=== PATIENT | male | born 1990 | race Caucasian/White ===

== ENCOUNTER 2017-08-14 17:21 | Observation (INO) | payer MEDICAID, OTHER ==
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
[2017-08-14 17:44] LABS: CHLORIDE,CL 102 mmol/L (98-107); SODIUM,NA 139 mmol/L (136-145)
[2017-08-14] MEDS ORDERED: Potassium Chloride 10 MEQ in Premix Bag 1 BAG IV ONE (18:13)
[2017-08-14] MEDS ORDERED: Sodium Chloride 0.9% 500 ML IV SCH (18:15)
[2017-08-14] MEDS ORDERED: Iopamidol 612 MG/ML 100 ML Bottle IVPUSH ONE (18:34)
[2017-08-14] MEDS ORDERED: Ondansetron 4 MG/2 ML SDV IVPUSH ONE (19:07)
[2017-08-14] MEDS ORDERED: HYDROmorphone 1 MG/ML Syringe IVPUSH ONE (19:07)
[2017-08-14] MEDS ORDERED: Potassium Chloride 20 MEQ Tab.ER PO ONE (21:22)
[2017-08-14] MEDS ORDERED: LORazepam 2 MG/ML MDV IVPUSH PRN (21:24)
[2017-08-14] MEDS ORDERED: Ondansetron 4 MG/2 ML SDV IVPUSH PRN (21:24)
[2017-08-14] MEDS: Morphine 4 MG/ML Syringe IVPUSH PRN (21:34)
[2017-08-14] MEDS ORDERED: Sodium Chloride 0.9% 1,000 ML IV SCH (22:00)
[2017-08-14] MEDS ORDERED: Bacitracin/Neomycin/Polymyxin B Oint 0.9 GM U/D Packet TOP ONE (22:03)
[2017-08-14] MEDS: Nicotine 21 MG/24 Hr Patch TRDERM SCH (22:25)
[2017-08-15] MEDS: Potassium Chloride 10 MEQ Tab.ER PO ONE ×2 (00:46→01:51)
[2017-08-15] MEDS: Morphine 4 MG/ML Syringe IVPUSH PRN ×5 (00:46→11:02)
[2017-08-15] MEDS: Acetaminophen 325 MG Tab PO PRN ×2 (05:41→08:29)
[2017-08-15] MEDS ORDERED: Potassium Chloride 10 MEQ Tab.ER PO ONE (06:00)
[2017-08-15 07:56] LABS: CHLORIDE,CL 102 mmol/L (98-107); SODIUM,NA 136 mmol/L (136-145)
[2017-08-15] MEDS: Nicotine 21 MG/24 Hr Patch TRDERM SCH (08:28)
[2017-08-15] MEDS ORDERED: Lactated Ringers 1,000 ML IV ONE (09:25)
[2017-08-15] MEDS ORDERED: Sodium Chloride 0.9% 1,000 ML IV SCH (10:30)
[2017-08-15] MEDS ORDERED: traMADol 50 MG Tab PO SCH (11:00)
[2017-08-15] MEDS ORDERED: Acetaminophen 325 MG Tab PO PRN (11:00)
[2017-08-15] MEDS ORDERED: HYDROmorphone 1 MG/ML Syringe IVPUSH PRN (11:00)
--- NOTE | 2017-08-15 11:15 | PCM.PN ---
- General Info Date of Service: 08/15/17 Admission Dx/Problem (Free Text): Trauma Functional Status: Reports: Pain Controlled, Tolerating Diet, Ambulating, Urinating, Incentive Spirometry (Initiated today). Denies: New Symptoms Pain Score: 5 - Review of Systems General: Reports: No Symptoms. Denies: Fever, Weakness, Fatigue, Malaise, Chills, Night Sweats, Appetite (Appetite good) HEENT: Reports: No Symptoms. Denies: Dysphasia, Ear Pain, Eye Pain, Headaches, Post Nasal Drip, Sinus Congestion, Sore Throat, Rhinitis, Visual Changes Pulmonary: Reports: Pleuritic Chest Pain (Left lower chest wall pain). Denies: Shortness of Breath, Cough, Sputum, Hemoptysis, Wheezing Cardiovascular: Reports: Chest Pain (Chest wall/rib pain as above). Denies: Palpitations, Dyspnea on Exertion, Orthopnea, PND, Edema, Lightheadedness Gastrointestinal: Reports: No Symptoms, Other (Normal bowel movement earlier today). Denies: Abdominal Pain, Constipation, Decreased Appetite, Diarrhea, Difficulty Swallowing, Flatus, Hematochezia, Melena, Nausea, Vomiting Genitourinary: Reports: No Symptoms. Denies: Dysuria, Frequency, Burning, Urgency, Incontinence, Hematuria, Flank Pain Musculoskeletal: Reports: Arm Pain, Back Pain, Leg Pain, Other (Above pain secondary to multiple contusions and abrasions). Denies: Neck Pain, Shoulder Pain, Hand Pain, Joint Pain, Joint Swelling Skin: Reports: Bruising, Other (Abrasions as below). Denies: Diaphoresis Neurological: Reports: No Symptoms, Difficulty Walking (Mild secondary to bruises). Denies: Confusion, Dizziness, Headache, Numbness, Paresthesia, Syncope, Tingling, Weakness, Gait Disturbance Psychiatric: Reports: Mood Lability (Somewhat uncooperative as below), Cravings (Tobacco and previous illicit drug use). Denies: Confusion, Depression, Anxiety , Agitation, Hallucinations, Suicidal Ideation, Homicidal Ideation - Patient Data Vitals - Most Recent: Last Vital Signs Temp 35.9 C 08/15/17 08:00 Pulse 109 H 08/15/17 08:00 Resp 16 08/15/17 04:00 BP 133/72 08/15/17 08:00 Pulse Ox 97 08/15/17 08:00 Vital Signs (72 hours) 08/14/17 08/14/17 08/15/17 21:53 21:56 00:00 Temperature [ 36.8 C 36.7 C Temporal] Pulse, 102 H 91 Peripheral [ Left Pulse Oximetry] Respiratory 16 18 Rate Blood Pressure 148/83 H 145/79 H [Right Upper Arm] O2 Sat by Pulse 100 100 100 Oximetry 08/15/17 08/15/17 04:00 08:00 Temperature [ 36.7 C 35.9 C Temporal] Pulse, 88 109 H Peripheral [ Left Pulse Oximetry] Respiratory 16 Rate Blood Pressure 137/64 133/72 [Right Upper Arm] O2 Sat by Pulse 100 97 Oximetry Weight - Most Recent: 88.451 kg I&O - Last 24 Hours: Intake & Output 08/14/17 08/15/17 08/15/17 22:59 06:59 14:59 Intake Total 4000 720 Output Total 1200 Balance 2800 720 Imaging Impressions - Last 24 Hours: Final reports of multiple x-rays taken in the emergency room including CT scan, etc. still pending shelter monitor shows normal sinus rhythm with average heart rate in the 80s, however occasional heart rate in the low 100s with agitation but no ectopy or other arrhythmia Lab Results Last 24 Hours: Laboratory Results - last 24 hr 08/15/17 08/15/17 08/15/17 Range/Units 07:17 07:17 07:17 WBC 11.3 H (4.0-10.2) K/uL RBC 4.41 (4.33-5.41) M/uL Hgb 14.1 (13.1-16.8) g/dL Hct 39.7 (39.0-49.0) % MCV 90.0 (84.0-98.0) fL MCH 32.0 (28.2-33.3) pg MCHC 35.5 (31.7-36.0) g/dL RDW 13.3 (11.2-14.1) % Plt Count 296 (150-350) K/uL Neut % (Auto) 62.2 (45.0-80.0) % Lymph % (Auto) 22.9 (10.0-50.0) % Wilcox % (Auto) 11.9 (2.0-14.0) % Eos % (Auto) 2.7 (0.0-5.0) % Baso % (Auto) 0.3 (0.0-2.0) % Neut # (Auto) 7.03 H (1.40-7.00) K/uL Lymph # (Auto) 2.59 (0.50-3.50) K/uL Wilcox # (Auto) 1.35 H (0.00-1.00) K/uL Eos # (Auto) 0.31 (0.00-0.50) K/uL Baso # (Auto) 0.03 (0.00-0.20) K/uL Sodium 136 (136-145) mmol/L Potassium 4.0 (3.5-5.1) mmol/L Chloride 102 (98-107) mmol/L Carbon Dioxide 24.6 (21.0-32.0) mmol/L BUN 12 (7-18) mg/dL Creatinine 0.79 (0.51-1.17) mg/dL Est Cr Clr Drug Dosing 187.08 mL/min Estimated GFR (MDRD) > 60 mL/min Glucose 96 (74-106) mg/dL Calcium 9.0 (8.5-10.1) mg/dL Total Bilirubin 1.1 H (0.2-1.0) mg/dL AST 61 H (15-37) U/L ALT 43 (12-78) U/L Alkaline Phosphatase 62 (46-116) IU/L Creatine Kinase 1597 H (26-308) U/L Total Protein 7.6 (6.4-8.2) g/dL Albumin 3.7 (3.4-5.0) g/dL Laboratory Tests 08/14/17 08/14/17 08/14/17 Range/Units 17:15 17:15 17:15 WBC 17.6 H (4.0-10.2) K/uL RBC 4.73 (4.33-5.41) M/uL Hgb 14.9 (13.1-16.8) g/dL Hct 41.8 (39.0-49.0) % MCV 88.4 (84.0-98.0) fL MCH 31.5 (28.2-33.3) pg MCHC 35.6 (31.7-36.0) g/dL RDW 13.2 (11.2-14.1) % Plt Count 314 (150-350) K/uL Neut % (Auto) 76.1 (45.0-80.0) % Lymph % (Auto) 13.5 (10.0-50.0) % Wilcox % (Auto) 9.5 (2.0-14.0) % Eos % (Auto) 0.7 (0.0-5.0) % Baso % (Auto) 0.2 (0.0-2.0) % Neut # (Auto) 13.43 H (1.40-7.00) K/uL Lymph # (Auto) 2.38 (0.50-3.50) K/uL Wilcox # (Auto) 1.67 H (0.00-1.00) K/uL Eos # (Auto) 0.12 (0.00-0.50) K/uL Baso # (Auto) 0.03 (0.00-0.20) K/uL Sodium 139 (136-145) mmol/L Potassium 3.1 L (3.5-5.1) mmol/L Chloride 102 (98-107) mmol/L Carbon Dioxide 24.4 (21.0-32.0) mmol/L BUN 12 (7-18) mg/dL Creatinine 0.80 (0.51-1.17) mg/dL Est Cr Clr Drug Dosing TNP Estimated GFR (MDRD) > 60 mL/min Glucose 93 (74-106) mg/dL Calcium 9.5 (8.5-10.1) mg/dL Total Bilirubin 0.7 (0.2-1.0) mg/dL AST 49 H (15-37) U/L ALT 43 (12-78) U/L Alkaline Phosphatase 66 (46-116) IU/L Creatine Kinase 1448 H (26-308) U/L Total Protein 8.2 (6.4-8.2) g/dL Albumin 4.3 (3.4-5.0) g/dL Specimen Type Urine Color Urine Appearance Urine pH (5.0-9.0) Ur Specific Dixon (1.005-1.030) Urine Protein (NEGATIVE) mg/dL Urine Glucose (UA) (NEGATIVE) mg/dL Urine Ketones (NEGATIVE) mg/dL Urine Occult Blood (NEGATIVE) Urine Nitrite (NEGATIVE) Urine Bilirubin (NEGATIVE) Urine Urobilinogen (0.2-1.0) E.U./dL Ur Leukocyte Esterase (NEGATIVE) Urine RBC /HPF Urine WBC /HPF Ur Epithelial Cells /LPF Urine Bacteria (NONE TO FEW) /HPF Urine Mucus (NEGATIVE) /LPF Urine Opiates Screen (NEGATIVE) Urine Methadone Screen (NEGATIVE) U Acetaminophen Screen (NEGATIVE) Ur Barbiturates Screen (NEGATIVE) Ur Tricyclics Screen (NEGATIVE) Ur Phencyclidine Scrn (NEGATIVE) Ur Amphetamine Screen (NEGATIVE) U Methamphetamines Scrn (NEGATIVE) U Benzodiazepines Scrn (NEGATIVE) U Cocaine Metab Screen (NEGATIVE) U Marijuana (THC) Screen (NEGATIVE) 08/14/17 08/14/17 08/15/17 Range/Units 18:40 18:40 07:17 WBC (4.0-10.2) K/uL RBC (4.33-5.41) M/uL Hgb (13.1-16.8) g/dL Hct (39.0-49.0) % MCV (84.0-98.0) fL MCH (28.2-33.3) pg MCHC (31.7-36.0) g/dL RDW (11.2-14.1) % Plt Count (150-350) K/uL Neut % (Auto) (45.0-80.0) % Lymph % (Auto) (10.0-50.0) % Wilcox % (Auto) (2.0-14.0) % Eos % (Auto) (0.0-5.0) % Baso % (Auto) (0.0-2.0) % Neut # (Auto) (1.40-7.00) K/uL Lymph # (Auto) (0.50-3.50) K/uL Wilcox # (Auto) (0.00-1.00) K/uL Eos # (Auto) (0.00-0.50) K/uL Baso # (Auto) (0.00-0.20) K/uL Sodium 136 (136-145) mmol/L Potassium 4.0 (3.5-5.1) mmol/L Chloride 102 (98-107) mmol/L Carbon Dioxide 24.6 (21.0-32.0) mmol/L BUN 12 (7-18) mg/dL Creatinine 0.79 (0.51-1.17) mg/dL Est Cr Clr Drug Dosing 187.08 Estimated GFR (MDRD) > 60 mL/min Glucose 96 (74-106) mg/dL Calcium 9.0 (8.5-10.1) mg/dL Total Bilirubin 1.1 H (0.2-1.0) mg/dL AST 61 H (15-37) U/L ALT 43 (12-78) U/L Alkaline Phosphatase 62 (46-116) IU/L Creatine Kinase (26-308) U/L Total Protein 7.6 (6.4-8.2) g/dL Albumin 3.7 (3.4-5.0) g/dL Specimen Type Urinblad Urine Color Dark yellow Urine Appearance Clear Urine pH 7.0 (5.0-9.0) Ur Specific Dixon 1.015 (1.005-1.030) Urine Protein 100 H (NEGATIVE) mg/dL Urine Glucose (UA) Negative (NEGATIVE) mg/dL Urine Ketones 40 H (NEGATIVE) mg/dL Urine Occult Blood Trace-intact H (NEGATIVE) Urine Nitrite Negative (NEGATIVE) Urine Bilirubin Negative (NEGATIVE) Urine Urobilinogen 1.0 (0.2-1.0) E.U./dL Ur Leukocyte Esterase Negative (NEGATIVE) Urine RBC 0-5 /HPF Urine WBC 10-20 H /HPF Ur Epithelial Cells Rare /LPF Urine Bacteria Rare (NONE TO FEW) /HPF Urine Mucus Few H (NEGATIVE) /LPF Urine Opiates Screen Negative (NEGATIVE) Urine Methadone Screen Negative (NEGATIVE) U Acetaminophen Screen Negative (NEGATIVE) Ur Barbiturates Screen Negative (NEGATIVE) Ur Tricyclics Screen Negative (NEGATIVE) Ur Phencyclidine Scrn Negative (NEGATIVE) Ur Amphetamine Screen Positive H (NEGATIVE) U Methamphetamines Scrn Positive H (NEGATIVE) U Benzodiazepines Scrn Positive H (NEGATIVE) U Cocaine Metab Screen Negative (NEGATIVE) U Marijuana (THC) Screen Positive H (NEGATIVE) 08/15/17 08/15/17 Range/Units 07:17 07:17 WBC 11.3 H (4.0-10.2) K/uL RBC 4.41 (4.33-5.41) M/uL Hgb 14.1 (13.1-16.8) g/dL Hct 39.7 (39.0-49.0) % MCV 90.0 (84.0-98.0) fL MCH 32.0 (28.2-33.3) pg MCHC 35.5 (31.7-36.0) g/dL RDW 13.3 (11.2-14.1) % Plt Count 296 (150-350) K/uL Neut % (Auto) 62.2 (45.0-80.0) % Lymph % (Auto) 22.9 (10.0-50.0) % Wilcox % (Auto) 11.9 (2.0-14.0) % Eos % (Auto) 2.7 (0.0-5.0) % Baso % (Auto) 0.3 (0.0-2.0) % Neut # (Auto) 7.03 H (1.40-7.00) K/uL Lymph # (Auto) 2.59 (0.50-3.50) K/uL Wilcox # (Auto) 1.35 H (0.00-1.00) K/uL Eos # (Auto) 0.31 (0.00-0.50) K/uL Baso # (Auto) 0.03 (0.00-0.20) K/uL Sodium (136-145) mmol/L Potassium (3.5-5.1) mmol/L Chloride (98-107) mmol/L Carbon Dioxide (21.0-32.0) mmol/L BUN (7-18) mg/dL Creatinine (0.51-1.17) mg/dL Est Cr Clr Drug Dosing Estimated GFR (MDRD) mL/min Glucose (74-106) mg/dL Calcium (8.5-10.1) mg/dL Total Bilirubin (0.2-1.0) mg/dL AST (15-37) U/L ALT (12-78) U/L Alkaline Phosphatase (46-116) IU/L Creatine Kinase 1597 H (26-308) U/L Total Protein (6.4-8.2) g/dL Albumin (3.4-5.0) g/dL Specimen Type Urine Color Urine Appearance Urine pH (5.0-9.0) Ur Specific Dixon (1.005-1.030) Urine Protein (NEGATIVE) mg/dL Urine Glucose (UA) (NEGATIVE) mg/dL Urine Ketones (NEGATIVE) mg/dL Urine Occult Blood (NEGATIVE) Urine Nitrite (NEGATIVE) Urine Bilirubin (NEGATIVE) Urine Urobilinogen (0.2-1.0) E.U./dL Ur Leukocyte Esterase (NEGATIVE) Urine RBC /HPF Urine WBC /HPF Ur Epithelial Cells /LPF Urine Bacteria (NONE TO FEW) /HPF Urine Mucus (NEGATIVE) /LPF Urine Opiates Screen (NEGATIVE) Urine Methadone Screen (NEGATIVE) U Acetaminophen Screen (NEGATIVE) Ur Barbiturates Screen (NEGATIVE) Ur Tricyclics Screen (NEGATIVE) Ur Phencyclidine Scrn (NEGATIVE) Ur Amphetamine Screen (NEGATIVE) U Methamphetamines Scrn (NEGATIVE) U Benzodiazepines Scrn (NEGATIVE) U Cocaine Metab Screen (NEGATIVE) U Marijuana (THC) Screen (NEGATIVE) Logan Results Last 24 Hours: None Med Orders - Current: Current Medications Acetaminophen (Tylenol) 650 mg PO Q4H PRN PRN Reason: Pain Hydromorphone HCl (Dilaudid) 1 mg IVPUSH Q4H PRN PRN Reason: Pain (severe 7-10) Sodium Chloride (Normal Saline) 1,000 mls @ 125 mls/hr IV ASDIRECTED JESSICA Lorazepam (Ativan) 1 mg PO QID JESSICA Ondansetron HCl (Zofran) 4 mg IVPUSH Q6H PRN PRN Reason: Nausea/Vomiting Last Admin: 08/14/17 21:34 Dose: 4 mg Tramadol HCl (Ultram) 50 mg PO Q6H JESSICA Discontinued Medications Acetaminophen (Tylenol) 650 mg PO Q6H PRN PRN Reason: Pain Last Admin: 08/15/17 08:29 Dose: 650 mg Hydromorphone HCl (Dilaudid) 1 mg IVPUSH ONETIME ONE Stop: 08/14/17 19:08 Last Admin: 08/14/17 19:13 Dose: 1 mg Potassium Chloride 10 meq/ (Premix) 50 mls @ 50 mls/hr IV ONETIME ONE Stop: 08/14/17 19:12 Last Admin: 08/14/17 19:12 Dose: 50 mls/hr Sodium Chloride (Normal Saline) 500 mls @ 500 mls/hr IV .BOLUS JESSICA Last Admin: 08/14/17 19:12 Dose: 500 mls/hr Sodium Chloride (Normal Saline) 1,000 mls @ 150 mls/hr IV ASDIRECTED JESSICA Last Admin: 08/15/17 06:17 Dose: 150 mls/hr Lactated Ringer's (Ringers, Lactated) 1,000 mls @ 999 mls/hr IV .BOLUS ONE Stop: 08/15/17 10:25 Last Admin: 08/15/17 10:00 Dose: 999 mls/hr Iopamidol (Isovue-300 (61%)) 100 ml IVPUSH ONETIME ONE Stop: 08/14/17 18:35 Last Admin: 08/14/17 18:53 Dose: 100 ml Lorazepam (Ativan) 1 mg IVPUSH Q8H PRN PRN Reason: Anxiety Last Admin: 08/15/17 03:52 Dose: 1 mg Morphine Sulfate (Morphine) 4 mg IVPUSH Q2H PRN PRN Reason: Pain Last Admin: 08/15/17 11:02 Dose: 4 mg Neomycin/Polymyxin/Bacitracin (Triple Antibiotic Oint) 1 each TOP ONETIME ONE Stop: 08/14/17 22:04 Last Admin: 08/15/17 00:21 Dose: 1 each Nicotine (Habitrol) 21 mg TRDERM DAILY [facility] Last Admin: 08/15/17 08:28 Dose: 21 mg Ondansetron HCl (Zofran) 4 mg IVPUSH ONETIME ONE Stop: 08/14/17 19:08 Last Admin: 08/14/17 19:13 Dose: 4 mg Potassium Chloride (Klor-Con M20) 40 meq PO ONETIME ONE Stop: 08/14/17 21:23 Last Admin: 08/14/17 21:34 Dose: 40 meq Potassium Chloride (Klor-Con 10) 20 meq PO ONETIME ONE Stop: 08/15/17 02:01 Last Admin: 08/15/17 01:51 Dose: Not Given Potassium Chloride (Klor-Con 10) 20 meq PO ONETIME ONE Stop: 08/15/17 06:01 Last Admin: 08/15/17 05:41 Dose: 20 meq - Exam Quality Assessment: DVT Prophylaxis. No: Supplemental Oxygen, Central Line/PICC , Urine Catheter, Skin Breakdown, Restraints General: Alert, Oriented, No Acute Distress. No: Cooperative (Occasionally uncooperative as below) HEENT: Pupils Equal, Pupils Reactive, EOMI, Mucous Membr. Moist/[place] Neck: Supple, Trachea Midline, No JVD, No Thyromegaly, +2 Carotid Pulse wo Bruit. No: Lymphadenopathy, Carotid Bruit Lungs: Clear to Auscultation, Normal Respiratory Effort, Other (Left chest wall painmild by palpation with no ecchymosis, crepitation, or sign of fracture). No: Rhonchi, Rub, Wheezing Cardiovascular: Regular Rate, Regular Rhythm, No Murmurs. No: Gallops, Rubs GI/Abdominal Exam: Normal Bowel Sounds, Soft, Non-Tender, No Organomegaly, No Distention, No Abnormal Bruit, No Mass, Pelvis Stable. No: Guarding (Male) Exam: Deferred Back Exam: Decreased Range of Motion (Mild decreased range of motion secondary to large contusion in the inferior lumbar and sacral region with moderate ecchymosis about 10 cm in diameter in this area), Paraspinal Tenderness. No: CVA Tenderness (L), CVA Tenderness (R), Muscle Spasm, Vertebral Tenderness Extremities: Normal Range of Motion, No Pedal Edema, Normal Capillary Refill, Arm Pain (Mild abrasion over the right olecranon with additional moderate ecchymosis over the left elbow region), Leg Pain (Mild abrasion with additional large ecchymosis in the left distal femur region). No: Anup's Sign, Increased Warmth, Pallor Peripheral Pulses: 2+: Radial (L), Radial (R) Skin: Ecchymosis (As above) Wound/Incisions: Healing Well, No Drainage Neurological: No New Focal Deficit Psy/Mental Status: Alert, Labile Mood (Uncooperative occasionally ), Agitated ( As above), Withdrawal Symptoms (Possible beginning secondary to his tobacco and illicit drug use with no DTs, etc.). No: Suicidal Ideation, Homicidal Ideation , Hallucinations - Problem List & Annotations (1) Contusion, multiple sites SNOMED Code(s): 884063234 Code(s): T07.XXXA - UNSPECIFIED MULTIPLE INJURIES, INITIAL ENCOUNTER Status : Acute Priority: High Current Visit: Yes Onset Date: 08/14/17 Annotation/Comment:: Continue observation care for pain management as below. Secondary to multiple areas of ecchymosis, subcutaneous hematomas, contusions, etc. IV Toradol will not be initiated at this time. Pain medications adjusted somewhat today with patient not to be discharged on any narcotics, Ultram, etc. secondary to his history of illicit drug abuse, etc. as below., If his hematomas are stable tomorrow, consider additional NSAID therapy at discharge. Continue topical heat and cold therapy. [facility] physician assumes care once again in the a.m. with likely discharge to home tomorrow (2) Trauma SNOMED Code(s): 645166643 Code(s): T14.90XA - INJURY, UNSPECIFIED, INITIAL ENCOUNTER Status: Acute Priority: High Current Visit: Yes Onset Date: 08/14/17 Annotation/Comment: : As above. Final reports of multiple x-rays from ER evaluation still pending. Possibility of left eighth through 10th rib fractures by CT scan as per emergency room note. Acute abdominal x-rays to be repeated in the a.m. with no direct evidence significant pulmonary contusion, etc. at this time by clinical exam. Repeat blood work in the a.m. (3) Illicit drug use, continuous SNOMED Code(s): 705358030 Code(s): F19.90 - OTHER PSYCHOACTIVE SUBSTANCE USE, UNSPECIFIED, UNCOMPLICATED Status: Chronic Priority: High Current Visit: Yes Annotation/Comment:: Long history of significant illicit drug, use including methamphetamine, marijuana, etc. Possible beginning mild withdrawal symptoms with change from IV to oral Ativan therapy for now. Patient is somewhat noncompliant with therapy this morning, including taking off his nicotinic patch , going outside to smoke, etc. Compliance with hospital regulations, current treatment, etc. strongly encouraged. He is aware that he must leave this facility as he does not remain compliant with our instructions. Strongly consider drug treatment program on an outpatient basis at discharge (4) Elevated CPK SNOMED Code(s): 084281414 Code(s): R74.8 - ABNORMAL LEVELS OF OTHER SERUM ENZYMES Status: Acute Priority: High Current Visit: Yes Onset Date: 08/14/17 Annotation/Comment: : Significant CPK elevation likely secondary to trauma. Continue aggressive IV fluids with additional 1 L IV bolus of lactated Ringer's given this morning. Continue to observe closely with myoglobin of urine also ordered today. No evidence of renal insufficiency. Repeat blood work in the a.m. Continue accurate I's and O's (5) Hypokalemia SNOMED Code(s): 80158721 Code(s): E87.6 - HYPOKALEMIA Status: Acute Priority: High Current Visit : Yes Onset Date: 08/15/17 Annotation/Comment:: IV fluids and potassium supplementation given orally during this hospitalization with resolved hypokalemia this time (6) Tobacco abuse SNOMED Code(s): 990755748 Code(s): Z72.0 - TOBACCO USE Status: Chronic Priority: Medium Current Visit: Yes Annotation/Comment:: Tobacco cessation information to be provided at discharge (7) ETOH abuse SNOMED Code(s): 02677986 Code(s): F10.10 - ALCOHOL ABUSE, UNCOMPLICATED Status: Chronic Priority: Medium Current Visit: Yes Annotation/Comment:: History of binge drinking in the past. Alcohol and illicit drug use counseling recommended as above (8) Elevated LFTs SNOMED Code(s): 634171720 Code(s): R79.89 - OTHER SPECIFIED ABNORMAL FINDINGS OF BLOOD CHEMISTRY Status: Acute Priority: Medium Current Visit: Yes Onset Date: ~08/15/17 Annotation/Comment:: Mild LFTs elevation. Repeat blood work and x-rays in the a.m.. Further workup depending on his clinical course - Problem List Review Problem List Initiated/Reviewed/Updated: Yes - My Orders Last 24 Hours: My Active Orders 08/15/17 10:30 Sodium Chloride 0.9% [Normal Saline] 1,000 ml IV ASDIRECTED 08/15/17 11:02 Acetaminophen [Tylenol] 650 mg PO Q4H PRN 08/15/17 11:03 HYDROmorphone [Dilaudid] 1 mg IVPUSH Q4H PRN 08/15/17 11:05 Communication Order [RC] ROUTINE 08/15/17 11:06 Abdomen Series w Chest 1V [CR] Stat Anti-Embolism Stockings AK [Antiembolic Hose] [OM.PC] Routine 08/15/17 11:07 DVT/VTE Prophylaxis Reflex [OM.PC] Routine 08/15/17 11:08 Antiembolic Devices [RC] .Routine Antiembolic Devices [RC] PER UNIT ROUTINE Daily Weight [Height and Weight] [RC] DAILY Intake and Output Strict [RC] ASDIRECTED VTE/DVT Education [RC] PER UNIT ROUTINE Vaccines to be Administered [RC] PER UNIT ROUTINE OCCULT BLOOD DIAGNOSTIC [OP] Stat GM Immunization Reflex [OM.PC] Click To Edit 08/15/17 11:09 Cooling Warming Measures [RC] ASDIRECTED Heat Therapy [OM.PC] Routine 08/15/17 11:11 CULTURE URINE [RM] Routine MYOGLOBIN,URN Routine 08/15/17 11:15 LORazepam [Ativan] 1 mg PO QID traMADol [Ultram] 50 mg PO Q6H 08/16/17 05:11 AMYLASE [CHEM] Routine CBC WITH AUTO DIFF [HEME] Routine CK W CKMB [CHEM] Routine COMPREHENSIVE METABOLIC PN,CMP [CHEM] Routine LIPASE [CHEM] Routine - Assessment Assessment:: As above - Plan Plan:: As above. Extensive precautions were given to the patient and his significant other, who are in agreement with the treatment plan. Likely discharge to home tomorrow.
[2017-08-15] MEDS: LORazepam 1 MG Tab PO SCH ×2 (11:35→12:00)
[2017-08-15] MEDS ORDERED: Bacitracin/Neomycin/Polymyxin B Oint 0.9 GM U/D Packet TOP PRN (12:30)
--- NOTE | 2017-08-15 13:51 | PCM.SN ---
- Free Text/Narrative Note: Patient pulled off telemetry pads and removed IV and climbed out of the window leaving this facility without permission. Per nurse's history patient also took some tape, and it looks like the patient also tried removing the saline lock. The nurse couldn't find the IV catheter however. We did check with administration with no need to notify police per hospital policy. Patient has essentially left AMA. Unfortunate social issues, including illicit drug abuse, etc. as per today's progress note earlier today.
== END 2017-08-15 13:20 | disposition left against medical advice (07) ==
LOC: LL.ED 17:21 → LL.MS 20:30
PROVIDERS: ADMIT Emergency Medicine; ATTEND Emergency Medicine
DX: T07.XXXA Unspecified multiple injuries, initial encounter (principal); F19.90 Other psychoactive substance use, unspecified, uncomplicated; R74.8 Abnormal levels of other serum enzymes; E87.6 Hypokalemia; F10.10 Alcohol abuse, uncomplicated; Z72.0 Tobacco use; R79.89 Other specified abnormal findings of blood chemistry; F17.210 Nicotine dependence, cigarettes, uncomplicated; V09.09XA Pedestrian injured in nontraffic accident involving other motor vehicles, initial encounter
CPT/HCPCS: 36415; 71260; 72100; 72170; 73552; 73560; 74022; 80053; 80305; 81001; 82550; 83874; 85025; 96361; 96365; 96375; 96376; 99291; 99292; A9270; G0378; G0390; J1170; J2060; J2270; J2405; J3480; J7030; J7040; J7120; Q9967